=== PATIENT | female | born 1995 | race Caucasian/White ===

== ENCOUNTER 2025-04-19 12:46 | Emergency (ER) | payer BC, SELFPAY ==
--- NOTE | 2025-04-19 12:53 | ED.ALLEREA ---
HPI - Allergic Reaction General Chief complaint: Allergic Reaction Stated complaint: Allergic Reaction- Throat Pain, Chill Swelling,hiv Time Seen by Provider: 04/19/25 13:18 Source: patient Mode of arrival: ambulatory Limitations: no limitations History of Present Illness ED Provider: Aaron Mcconnell PA-C HPI narrative: 29-year-old female with no significant medical history presents to the ER for evaluation of an allergic reaction. She reports on Thursday she was using CeraVe lotion on her legs to shave. She started to feel itchy in the area where the lotion was so she stopped. She states she woke up on Thursday morning with diffuse, red, raised, itchy hives on her thighs and right flank. She took Latanya on Thursday and yesterday with no improvement. She states the hives are getting worse and are now located on her back, arms, face. She states she woke up this morning with significant swelling of the right side of her lips, chin, and sensation that her throat is closing. She came to the ER for further evaluation and treatment. She denies any history of allergic reaction, angioedema or anaphylaxis. She has no known allergies. She denies any new foods and does not take any medications. On arrival to the ER she denies any difficulty swallowing or difficulty breathing. MD complaint: allergic reaction, hives and facial swelling Onset (ago): day(s) Exposure: other (CeraVe lotion) Symptoms: rash, itching, facial swelling, lip swelling and tongue swelling Severity: severe Treatment prior to arrival: other (Latanya) Previous Allergic Reaction History: none Related Data Previous Rx's ?Medication ?Instructions ?Recorded epinephrine 0.3 mg/0.3 mL 0.3 mg (0.3 mL) IM Q10M PRN 04/19/25 injection, auto-injector (EpiPen) anaphylaxis #2 ea famotidine 20 mg tablet (Pepcid) 20 mg PO DAILY #14 tabs 04/19/25 prednisone 10 mg tablets in a dose See Taper PO DAILY #30 ea 04/19/25 pack Allergies Allergy/AdvReac Type Severity Reaction Status Date / Time No Known Allergies Allergy Verified 04/19/25 12:59 Review of Systems Review of Systems: Yes all other systems are reviewed and are negative PMFSH Social History Social History Smoked in Last 30 Days: No Use of substances other than those prescribed or required for medical reasons: No Advance Directives: No Advance Directives Information Provided: Yes Do you have a plan to hurt others: No Plan Patient : No Physical Exam ED Vital Signs: Vital Signs - 24 hr 04/19/25 12:54 04/19/25 13:50 04/19/25 15:07 Temperature 97.9 F Pulse Rate 108 H 95 91 Respiratory Rate 18 18 Blood Pressure 109/74 118/70 103/66 Pulse Oximetry 98 98 Oxygen Delivery Method Room Air Room Air BMI result Body Mass Index 28.6 Appearance: Alert. Oriented X3. No acute distress. Head/face: normocephalic, atraumatic. There is moderate edema and swelling of the upper and lower lips on the right side only. There is fullness and swelling of the chin Eyes: Pupils equal, round and reactive to light. ENT: Pharynx normal. No tonsillar swelling or exudate. Tongue does not appear swollen. Normal inspection of the sublingual space without fullness. No trismus Neck: Normal inspection. Neck supple. No lymphadenopathy, no submental or submandibular swelling CVS: Tachycardic, regular rhythm. Pulses normal. Respiratory: No respiratory distress. Breath sounds normal. No wheezing, speaking complete sentences Abdomen: Soft and nontender. +BS x4 Skin: Skin warm and dry. Normal skin color. Normal skin turgor. There is a diffuse urticarial rash on her bilateral thighs, right flank, back, chest and arms. Extremities: No lower extremity edema. No joint swelling. Neuro/psych: Oriented X 3. No motor deficit. No sensory deficit. CN II-XII intact. Normal speech and cognition. Course Course Course Narrative: This is a Rapid Medical Exam performed in triage by Debi Reynolds PA-C. Full HPI, ROS and PE to be performed by primary ED provider. 29 yo F presenting to the ED c/o diffuse hives all over body x Thursday, now with facial/lip swelling x this AM. Reports throat and tongue swelling. Admits to using different soap on Thursday night prior to sx starting. PE: +hives noted to back, UE/LE, +R upper and lower lip swelling. Uvula midline, talking in complete sentences Plan: IV Solumedrol, Pepcid, Benadryl & IVF Medications Administered Discontinued Medications Generic Name Dose Route Start Last Admin Trade Name Freq PRN Reason Stop Dose Admin Diphenhydramine HCl 50 mg 04/19/25 12:57 04/19/25 13:20 Diphenhydramine Hcl 50 Mg/Ml Vial IVPUSH 04/19/25 12:58 50 mg ONCE ONE Administration Epinephrine 0.3 mg 04/19/25 13:45 04/19/25 13:50 Epinephrine 1 Mg/Ml Vial IM 04/19/25 13:46 0.3 mg STAT STA Administration Famotidine 20 mg 04/19/25 12:57 04/19/25 13:20 Famotidine/Pf 20 Mg/2 Ml Vial IVPUSH 04/19/25 12:58 20 mg ONCE ONE Administration Sodium Chloride 1,000 mls @ 999 mls/hr 04/19/25 13:00 04/19/25 14:20 Ns IV 04/19/25 14:00 Infused .Q1H1M JITENDRA Infusion Methylprednisolone Sodium Succinate 125 mg 04/19/25 12:57 04/19/25 13:46 Methylprednisolone Sod Succ 125 Mg/2 Ml Vial IVPUSH 04/19/25 12:58 Not Given ONCE ONE Methylprednisolone Sodium Succinate 125 mg 04/19/25 13:30 04/19/25 13:44 Methylprednisolone Sod Succ 125 Mg Vial IVPUSH 04/19/25 13:31 125 mg ONCE ONE Administration Medical Decision Making Medical Decision Making [facility] Narrative: 29-year-old female with no significant history presents to the ER for evaluation of worsening diffuse hives for the last 48 hours after using a topical CeraVe lotion along with new onset of right-sided lip swelling, tongue swelling and sensation of throat closing that started this morning. Symptoms have been present and worsening for over 48 hours with new involvement of the face and potential airway today. She is protecting her airway with no posterior pharyngeal erythema or swelling. Her voice is normal. No sublingual or submental swelling. IV was established and she was given IV Solu-Medrol, Pepcid and Benadryl. Case discussed with Dr. Godwin who evaluated the patient at the bedside. Recommending intramuscular epinephrine and close monitoring. Patient re-evaluated after meds, she is feeling much better. After 4 hours of monitoring in the emergency department, symptoms have improved. There is not complete resolution of the lip swelling but patient is feeling much better. She would like to be discharged home. At this time comfortable discharge with EpiPen, Pred taper, Pepcid, Latanya and allergy referral. Patient given strict return instructions and all questions were answered. Stable for discharge home Differential Diagnosis Differential Diagnoses: The differential diagnosis associated with the presentation includes Angioedema, anaphylaxis, general allergic reaction, idiopathic urticaria Admission/Observation Consideration of admission/observation: Escalation of care including admission/observation considered Prescription Management I considered prescription management with: Other (Considered [facility] for management of possible angioedema) Critical Care Time Critical Care Time Critical Care Time: Yes Total Critical Care Time: 40 Attestation: I have personally provided critical care time exclusive of time spent on separately billable procedures. Time includes multiple bedside re-evaluations of airway, symptoms and hemodynamics along with monitoring for potential decompensation. Intervention performed as documented. Discharge Plan Discharge Clinical Impression: Anaphylaxis Patient Disposition: Home, Self-Care Instructions: General Allergic Reaction (ED), Allergy Testing (ED) Additional Instructions: You were treated with IV steroids, IV Benadryl and IV Pepcid today along with intramuscular epinephrine for allergic reaction. You are being discharged with an EpiPen if you were to experience these symptoms again in the future. Recommend following up with an transmission and protection engineer for further testing and evaluation. Take the prescribed prednisone taper as directed. Complete the entire course and do not miss any doses. Continue Latanya every day for the next 2 weeks. Continue Pepcid for the next 2 weeks. If you develop new or worsening symptoms call 911 or come back to the ER for further evaluation. Prescriptions: New epinephrine [EpiPen] 0.3 mg/0.3 mL auto-injector 0.3 mg IM Q10M PRN (Reason: anaphylaxis) Qty: 2 0RF Rx Instructions: for 2 doses prednisone 10 mg tablets,dose pack See Taper PO DAILY Qty: 30 0RF Taper: Prednisone 40 mg daily for 3 Days and 0 Hour 30 mg daily for 3 Days and 0 Hour 20 mg daily for 3 Days and 0 Hour 10 mg daily for 3 Days and 0 Hour Rx Instructions: 40 mg Daily x3 days, 30 mg daily x3 days, 20 mg daily x3 days, 10 mg daily x3 days famotidine [Pepcid] 20 mg tablet 20 mg PO DAILY Qty: 14 0RF Print Language: Bulgarian
[2025-04-19 12:54] VITALS: BP 109/74; PULSE 108; RESP 18; TEMP 36.6; O2SAT 98; BMI 28.6
[2025-04-19] MEDS: 0.9 % Sodium Chloride 1,000 ML 999 ML IV (13:16)
[2025-04-19] MEDS: diphenhydrAMINE HCL 50 MG/ML VIAL IVPUSH (13:20)
[2025-04-19] MEDS: Famotidine/PF 20 MG/2 ML VIAL IVPUSH (13:20)
[2025-04-19 13:50] VITALS: BP 118/70; PULSE 95
[2025-04-19] MEDS: EPINEPHrine 1 MG/ML VIAL 0.3 MG IM (13:50)
--- OUTSIDE RECORDS SUMMARY | 2025-04-19 14:39 | XMS_ITS | Continuity of Care Document ---
Author Organization [facility] Address [address] [place] [address] Phone Care Team Providers Care Echo Vascular Technologist Name Role Phone No Information Unavailable Unavailable Procedures Procedure Date Voided Encounter Advance Directives Directive Yes / No Effective Date File Name No Information Encounters Encounter Description Practice Location Reason(s) For Visit Diagnoses Date Provider Providers Copied on Encounter [facility], [address] [place], [address], [place] tel:[phone] [facility] No Information No Information Family History Family Member Type Diagnosis Age At Onset No Information Payers Payer name Insurance type Covered green party ID Authoriza tion(s) No Information Social History Type Description Quantity Date Captured Comments Sex Female Smoking Status No Information Chief Complaint And Reason For Visit No Information Reason For Referral Reason For Referral No Information History Of Present Illness Encounter Date Complaint History Of Prese nt Illness No Information Functional Status Date Functional Assessmen t No Information Instructions Date Instruction Additional Infor mation No Information Assessments Type Assessment Date No Information Patient Care Teams Name Effective Dates (start - stop) Status Members No Information
[2025-04-19 15:07] VITALS: BP 103/66; PULSE 91; RESP 18; O2SAT 98
[2025-04-19 16:20] VITALS: BP 93/54; PULSE 85; RESP 16; TEMP 36.4; O2SAT 97
== END 2025-04-19 16:21 | disposition home or self-care (01) ==
PROVIDERS: Emergency Provider Emergency Medicine
DX: R07.0 Pain in throat (principal); R11.2 Nausea with vomiting, unspecified; L50.0 Allergic urticaria; T80.59XA Anaphylactic reaction due to other serum, initial encounter
CPT/HCPCS: 96361; 96372; 96374; 96375; 99284; J0171; J1200; J1308; J2919